=== PATIENT | female | born 1955 | race Caucasian/White ===

== ENCOUNTER → 2017-05-28 | Outpatient (CLI) | payer OTHER ==
[~2017-05-28] MED LIST: ATEN-155 PO; ATEN25TA PO; BIRTH CONTROL PILL PO; CETI10TA20 PO; CHOL10003 PO; CHOL100045 PO; CITA10TA7 PO; CYCL10TA9 PO; ESTR2TAB PO; FEXO180T PO; LOSA50TA36 PO; MEDR2.5T PO; MELO15TA39 PO; RANI-515 PO; TRAM50TA2 PO
--- NOTE | 2017-05-31 10:58 | Diagnostic Imaging Report ---
INDICATION: Screening mammogram. COMPARISON: 05/27/2016. TECHNIQUE: Digital screening mammography was obtained with CAD and 3-dimensional tomosynthesis. FINDINGS: The breast tissue is heterogeneously dense. No masses or suspicious calcifications are seen. There has been no interval change. IMPRESSION: Stable screening mammogram. No malignancy. ACR BI-RADS Category 1: Negative. Result letter will be mailed to the patient. Note: At least 10% of breast cancer is not imaged by mammography. Dictated by: Dictated on workstation # [id number]
== END ==
LOC: RAD 15:28
PROVIDERS: ATTEND Obstetrics & Gynecology
DX: Z12.31 Encounter for screening mammogram for malignant neoplasm of breast (principal)
CPT/HCPCS: 77067

== ENCOUNTER 2017-07-12 15:00 | Outpatient (CLI) | payer OTHER ==
[~2017-07-12] VITALS: Ht 160 cm; Wt 57.2 kg
[~2017-07-12 15:00] MED LIST changes: -ATEN25TA PO; -CETI10TA20 PO; -CHOL100045 PO; -CITA10TA7 PO; -ESTR2TAB PO; -LOSA50TA36 PO; -MEDR2.5T PO; -MELO15TA39 PO; -RANI-515 PO
[2017-07-12] MEDS ORDERED: ESTR2TAB PO (15:15)
[2017-07-12] MEDS ORDERED: MELO15TA39 PO (15:15)
[2017-07-12] MEDS ORDERED: MEDR2.5T PO (15:15)
[2017-07-12] MEDS ORDERED: RANI-515 PO (15:15)
[2017-07-12] MEDS ORDERED: ATEN25TA PO (15:15)
[2017-07-12] MEDS ORDERED: CHOL100045 PO (15:15)
[2017-07-12] MEDS ORDERED: CETI10TA20 PO (15:15)
[2017-07-12] MEDS ORDERED: TRAM50TA2 PO (15:15)
[2017-07-12] MEDS ORDERED: CITA10TA7 PO (15:15)
[2017-07-12] MEDS ORDERED: LOSA50TA36 PO (15:15)
== END 2017-07-12 15:25 ==
LOC: PREOP 15:00
PROVIDERS: ATTEND Surgery
DX: Z01.818 Encounter for other preprocedural examination (principal); Z12.11 Encounter for screening for malignant neoplasm of colon

== ENCOUNTER → 2017-07-14 | Day surgery (SDC) | payer OTHER ==
[~2017-07-14] VITALS: Ht 160 cm; Wt 57.2 kg
[~2017-07-14] MED LIST changes: +ACETAMINOPHEN 325 MG TABLET/CAPLET (TYLENOL) PO PRN; +ATEN25TA PO; +CETI10TA20 PO; +CHOL100045 PO; +CITA10TA7 PO; +ESTR2TAB PO; +LIDOCAINE JELLY 2% (XYLOCAINE) 5 ML TUBE MM PRN; +LIDOCAINE JELLY 2% (XYLOCAINE) 5 ML TUBE ONE; +LOSA50TA36 PO; +MEDR2.5T PO; +MELO15TA39 PO; +MIDAZOLAM 2 MG/2 ML (VERSED) VIAL ONE; +NS IV 500 ML 500 ML IV PRN; +NS IV 500 ML 500 ML ONE; +ONDANSETRON 4 MG/2 ML (SDV) Z0FRAN IV PRN; +RANI-515 PO; +fentaNYL INJECTION 100 MCG/2 ML AMP ONE; +morphine INJ 10 MG/ML 1ML (SYR OR VIAL) IV PRN
[2017-07-14 09:05] VITALS: BP 143/91
[2017-07-14] MEDS: fentaNYL INJECTION 100 MCG/2 ML AMP IVP PRN ×3 (10:37→10:56)
--- NOTE | 2017-07-14 10:41 | Conscious Sedation/ASA ---
Conscious Sedation Pre-Proced Time Reviewed: 10:00 ASA Class: 2 Airway Mallampati Classification: ([place] appropriate class) I. II. III, IV Lungs Heart ASA score ASA 1: a normal healthy patient ASA 2: a patient with a mild systemic disease (mid diabetes, controlled hypertension, obesity ASA 3: a patient with a severe systemic disease that limits activity (angina , COPD, prior Myocardial infarction) ASA 4: a patient with an incapacitating disease that is a constant threat to life (CHF, renal failure) ASA 5: a moribund patient not expected to survive 24 hrs. (ruptured aneurysm) ASA 6: a declared brain patient whose organs are being harvested. For emergent operations, add the letter E after the classification Grade 2 Sedation Plan: Analgesia, Amnesia, Plan communicated to team members, Discussed options with patient/fam, Discussed risks with patient/fam Note The patient is an appropriate candidate to undergo the planned procedure, sedation, and anesthesia. The patient immediately re-assessed prior to indication. PARVIN CUEVA MD Jul 14, 2017 10:41 am
--- NOTE | 2017-07-14 10:41 | Progress Note-Pre Operative ---
Pre-Operative Progress Note H&P Reviewed The H&P was reviewed, patient examined and no changes noted. Date Seen by Provider: Jul 14, 2017 Time Seen by Provider: 10:00 Date H&P Reviewed: Jul 14, 2017 Time H&P Reviewed: 10:00 Pre-Operative Diagnosis: screening colonoscopy PARVIN CUEVA MD Jul 14, 2017 10:41 am
[2017-07-14] MEDS: MIDAZOLAM 2 MG/2 ML (VERSED) VIAL IVP PRN ×4 (10:45→10:58)
--- NOTE | 2017-07-14 11:22 | Progress Note-Post Operative ---
Post-Operative Progess Note Surgeon (s)/Chairman (s) Surgeon PARVIN CUEVA MD Chairman: none Pre-Operative Diagnosis screening colonoscopy Post-Operative Diagnosis chronic stage 2 ext and int hemorrhoids. Procedure & Operative Findings Date of Procedure 07/14/17 Procedure Performed/Findings Colonoscopy Anesthesia Type CS Estimated Blood Loss Estimated blood loss (mL): minimal Specimens/Packing Specimens Removed none PARVIN CUEVA MD Jul 14, 2017 11:22 am
--- NOTE | 2017-07-14 11:23 | Discharge Inst-Surgical ---
D/C Lap Instructions-ANAY Follow Up 10 years Activity as tolerated High Fiber Diet 25g or more per day Avoid Alcohol, Caffeine, Spicy [place] and Acid foods. Drink 64 fluid oz or more of fluids per day. Symptoms to Report: Fever over 101 degree F, Nausea/Vomiting If any problems/questions: Contact your physician or go to Emergency Room PARVIN CUEVA MD Jul 14, 2017 11:23 am
[2017-07-14 11:35] VITALS: BP 128/81
[2017-07-14 12:05] VITALS: BP 125/78
[2017-07-14 12:06] VITALS: BP 125/78
--- NOTE | 2017-07-14 19:37 | OPERATIVE REPORT ---
DATE OF SERVICE: 07/14/2017 ATTENDING PRIMARY CARE PHYSICIAN: Dr. Smita Salinas. PREOPERATIVE DIAGNOSIS: Screening colonoscopy. POSTOPERATIVE DIAGNOSIS: Chronic stage II external and internal hemorrhoids. PROCEDURE: Colonoscopy. SURGEON: Dr. Cardoso. ANESTHESIA: Conscious sedation. ESTIMATED BLOOD LOSS: Minimal. FINDINGS: Chronic stage II external and internal hemorrhoids, not actively edematous nor inflamed and no bleeding. The remainder of the rectum and colon were normal. DISPOSITION: The patient tolerated the procedure well. the patient is a 61-year-old female known to us. She has been seen before in the past for benign skin lesions. She also did have two breast lesions identified on mammogram as well as MRI. These were biopsied and found to be consistent with benign breast tissue. She is also in need of a screening colonoscopy. Her last colonoscopy was 10 years ago, which she reports to be normal. She states that she is having normal bowel movements and for the most part does not have any major issues of diarrhea nor constipation as well as no red blood per rectum nor any dark tarry stools. The endoscope was intubated to the anus and rectum and gently insufflated. The endoscope was then advanced to the valves of [place] of the rectum with no polyps or any neoplasms identified. The endoscope was then advanced to the sigmoid colon where no diverticulosis identified. The endoscope was then advanced to the remainder of the descending, transverse and ascending colon to the cecum. These segments were normal. There were no polyps or any neoplasms identified throughout the colon or rectum. The endoscope was then slowly withdrawn taking a second look and suctioning residual air with no additional findings. The patient tolerated the procedure well. We will have her continue with medical management with a high fiber diet with at least 25 grams of fiber per day as well as at least 64 fluid ounces of water daily to promote soft stools on a daily basis. She does not need another colonoscopy for another 10 years. Job ID: [id number] DocumentID: [id number] Dictated Date: 07/14/2017 11:18:42 Rubber Covering Machine Operator Date: 07/14/2017 19:36:39 Dictated By: PARVIN CARDOSO MD
== END | disposition home or self-care (01) ==
LOC: SDC 08:59
PROVIDERS: ATTEND Surgery
DX: Z12.11 Encounter for screening for malignant neoplasm of colon; K64.1 Second degree hemorrhoids; Z80.3 Family history of malignant neoplasm of breast; I10 Essential (primary) hypertension; F41.9 Anxiety disorder, unspecified; Z79.899 Other long term (current) drug therapy; F32.9 Major depressive disorder, single episode, unspecified

== ENCOUNTER → 2019-06-16 | Outpatient (CLI) | payer OTHER ==
[~2019-06-16] MED LIST changes: -ACETAMINOPHEN 325 MG TABLET/CAPLET (TYLENOL) PO PRN; -LIDOCAINE JELLY 2% (XYLOCAINE) 5 ML TUBE MM PRN; -LIDOCAINE JELLY 2% (XYLOCAINE) 5 ML TUBE ONE; -LOSA50TA36 PO; +LOSA50TA63 PO; -MIDAZOLAM 2 MG/2 ML (VERSED) VIAL ONE; -NS IV 500 ML 500 ML IV PRN; -NS IV 500 ML 500 ML ONE; -ONDANSETRON 4 MG/2 ML (SDV) Z0FRAN IV PRN; -fentaNYL INJECTION 100 MCG/2 ML AMP ONE; -morphine INJ 10 MG/ML 1ML (SYR OR VIAL) IV PRN
--- NOTE | 2019-06-19 09:27 | Diagnostic Imaging Report ---
INDICATION: Routine screening. COMPARISON: 06/07/2018 and 05/28/2017. TECHNIQUE: 2D and 3D bilateral screening mammography was performed with CAD. FINDINGS: Both breasts remain heterogeneously dense, limiting the sensitivity of mammography. The overall breast parenchymal pattern is stable. No dominant mass or malignant appearing microcalcifications are seen. A marker clip in the right breast is again noted. The axillae are unremarkable. IMPRESSION: No mammographic features suspicious for malignancy are identified. ACR BI-RADS Category 2: Benign findings. Result letter will be mailed to the patient. Note: At least 10% of breast cancer is not imaged by mammography. Dictated by: Dictated on workstation # [id number]
== END ==
LOC: RAD 15:03
PROVIDERS: ATTEND Obstetrics & Gynecology
DX: Z12.31 Encounter for screening mammogram for malignant neoplasm of breast (principal)
CPT/HCPCS: 77067

== ENCOUNTER → 2020-07-03 | Outpatient (CLI) | payer OTHER ==
[~2020-07-03] MED LIST changes: -CETI10TA20 PO; +CETI10TA49 PO; -RANI-515 PO; +RANI-609 PO; +TRM50T PO
--- NOTE | 2020-07-04 17:11 | Diagnostic Imaging Report ---
Digital mammogram. Bilateral screening This study was compared to the prior exams of 06/16/2019, 06/07/2018 and 05/28/2017. At this time there are no current complaints. The current study was also evaluated with a Computer Aided Detection (CAD) system. FINDINGS: The fibroglandular tissue in both breasts is heterogeneously dense. This does limit the sensitivity of this exam. Overall, there does not appear to have been any significant change when compared to the prior study. No primary or secondary sign of malignancy is noted. The stereotactic clip in the right breast seen previously is again evident and no different. IMPRESSION: There is no radiographic evidence for malignancy. ACR BI-RADS Category 1: Negative. Result letter will be mailed to the patient. Note: At least 10% of breast cancer is not imaged by mammography. Dictated by: Dictated on workstation # [id number]
== END ==
LOC: RAD 06-28 09:15
PROVIDERS: ATTEND Obstetrics & Gynecology
DX: Z12.31 Encounter for screening mammogram for malignant neoplasm of breast (principal)
CPT/HCPCS: 77063; 77067

== ENCOUNTER 2020-09-24 05:32 | Outpatient (RCR) | payer OTHER ==
[~2020-09-24] VITALS: Ht 160 cm; Wt 64.5 kg
[~2020-09-24 05:32] MED LIST changes: +FAMO-119 PO; +FURO20TA4 PO; +LOSA100T57 PO; +MEDR5TAB4 PO
== END 2020-09-24 10:58 | disposition home or self-care (01) ==
LOC: PREOP 05:32
PROVIDERS: ATTEND Obstetrics & Gynecology
DX: Z01.812 Encounter for preprocedural laboratory examination (principal); Z20.828 Contact with and (suspected) exposure to other viral communicable diseases
CPT/HCPCS: 87635

== ENCOUNTER 2020-09-27 07:59 | Day surgery (SDC) | payer OTHER ==
[2020-09-27] VITALS (11 sets, daily range): BP systolic 108–184; BP diastolic 62–96
[~2020-09-27] VITALS: Ht 154 cm; Wt 65.9 kg
[2020-09-27] MEDS ORDERED: ceFAZolin INJECTION 1,000 MG in WATER (STERILE) FOR INJECTION 10 ML IV ONE (08:15)
[2020-09-27] MEDS ORDERED: CATHETER FLUSH 10 ML SYR IV PRN (08:45)
[2020-09-27] MEDS: LACTATED RINGERS 1,000 ML IV PRN ×2 (08:52→10:38)
[2020-09-27 08:58] LABS: BASOPHILS # (AUTO) 0.1 10^3/uL (0.0-0.1); BASOPHILS % (AUTO) 1 % (0-10); EOSINOPHILS # (AUTO) 0.2 10^3/uL (0.0-0.3); EOSINOPHILS % (AUTO) 3 % (0-10); HEMATOCRIT 38 % (35-52); HEMOGLOBIN 12.5 g/dL (11.5-16.0); LYMPHOCYTES # (AUTO) 1.6 10^3/uL (1.0-4.0); LYMPHOCYTES % (AUTO) 26 % (12-44); MEAN CORPUSCULAR HEMOGLOBIN 30 pg (25-34); MEAN CORPUSCULAR HGB CONC 33 g/dL (32-36); MEAN CORPUSCULAR VOLUME 91 fL (80-99); MONOCYTES # (AUTO) 0.5 10^3/uL (0.0-1.0); MONOCYTES % (AUTO) 8 % (0-12); NEUTROPHILS # (AUTO) 3.8 10^3/uL (1.8-7.8); NEUTROPHILS % (AUTO) 62 % (42-75); PLATELET COUNT 225 10^3/uL (130-400); WHITE BLOOD COUNT 6.2 10^3/uL (4.3-11.0)
[2020-09-27] MEDS ORDERED: LIDOCAINE/EPI 1%-1:100,000 (XYLOCAINE) 50 ML ONE (09:21)
[2020-09-27] MEDS ORDERED: ROCURONIUM 10 MG/ML 5 ML SYRINGE IV ONE (09:23)
[2020-09-27] MEDS ORDERED: fentaNYL INJECTION 100 MCG/2 ML AMP ONE (09:23)
[2020-09-27] MEDS ORDERED: proPOfol 200 MG/20 ML (DIPRIVAN) VIAL IV ONE (09:23)
[2020-09-27] MEDS ORDERED: MIDAZOLAM 2 MG/2 ML (VERSED) VIAL ONE (09:23)
[2020-09-27] MEDS ORDERED: SEVOFLURANE (ULTANE) 15 ML INHAL SOLN ONE ×5 (09:23→11:33)
[2020-09-27] MEDS ORDERED: LIDOCAINE PF 2% 5 ML (XYLOCAINE) VIAL ONE (09:23)
--- NOTE | 2020-09-27 09:37 | Progress Note-Pre Operative ---
Pre-Operative Progress Note H&P Reviewed The H&P was reviewed, patient examined and no changes noted. 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
--- NOTE | 2020-09-27 09:40 | Progress Note-Post Operative ---
Post-Operative Progess Note Surgeon (s)/Board Liner Operator (s) Surgeon LISSET BECK MD Board Liner Operator: Nevaeh Hodge Pre-Operative Diagnosis Postmenopausal bleeding/endometrial hyperplasia/endometrial tubal metaplasi Post-Operative Diagnosis Same with Abnormal appearing appendix multilobular uterus and with pathology pending Procedure & Operative Findings Date of Procedure 09/27/20 Procedure Performed/Findings Total laparoscopic hysterectomy with bilateral salpingo-oophorectomy / Laparoscopic appendectomy Anesthesia Type GETA Estimated Blood Loss Estimated blood loss (mL): Minimal Specimens/Packing Specimens Removed Uterus fallopian tubes and ovaries Packing: None LISSET BECK MD Sep 27, 2020 09:40
[2020-09-27] MEDS ORDERED: DOCU-143 PO (09:44)
[2020-09-27] MEDS ORDERED: OXYC1TAB87 PO (09:44)
[2020-09-27] MEDS ORDERED: D5 LR IV SOLUTION 1,000 ML IV SCH ×2 (09:45→16:45)
[2020-09-27] MEDS ORDERED: PROMETHAZINE INJ 25 MG/ML (PHENERGAN) AMP IM PRN (09:45)
[2020-09-27] MEDS ORDERED: oxyCODONE/APAP 5/325MG (PERCOCET 5) TABLET PO PRN (09:45)
[2020-09-27] MEDS ORDERED: MEPERIDINE (DEMEROL) INJ 100 MG/ML IM PRN (09:45)
[2020-09-27] MEDS ORDERED: KETOROLAC 30 MG/ML VIAL IVP SCH ×2 (09:45→18:00)
[2020-09-27] MEDS ORDERED: ONDANSETRON 4 MG/2 ML (SDV) Z0FRAN IVP PRN ×3 (09:45→16:45)
[2020-09-27] MEDS ORDERED: ESTROGENS CONJ INJECTION 25 MG in WATER (STERILE) FOR INJECTION 5 ML IV ONE (09:45)
--- NOTE | 2020-09-27 09:45 | Discharge Inst-Surgical ---
Discharge Inst-Surgical Consults/Follow Up Patient Instructions: As directed Orders & Referrals Follow Up Appt: Return to clinic on Wednesday, September 30, 2020 at 9:30 AM for staple removal Call to make follow up appt. for patient in 4 weeks. Activity: Rest for 24 hours, than as tolerated. Wound Care: May remove Band-Aid tomorrow. Replace as desired. Keep incisions clean and dry. Wash daily with soap and water. Please call in RX to patient pharmacy. Diet: As tolerated shower or tub bathe as desired. No driving for 24 hours, no alcoholic beverages for 24 hours, and nothing per vagina (no tampons, douching, or intercoarse) for 8 weeks. Patient to return to the clinic as soon as possible for: Temperature greater than 101F, Severe Pain, Foul discharge from incision or vagina, Excessive Bleeding (more than a period). Activity Activity as Tolerated: No Diet Discharge Diet: No Restrictions LISSET BECK MD Sep 27, 2020 09:45
[2020-09-27] MEDS ORDERED: ATROPINE INJ 0.4 MG/ML SDV ONE (10:09)
--- NOTE | 2020-09-27 11:28 | Anesthesia-General Post-Op ---
General Patient Condition Mental Status/LOC: Same as Preop Cardiovascular: Satisfactory Nausea/Vomiting: Absent Respiratory: Satisfactory Pain: Controlled Complications: Absent Post Op Complications Complications None Follow Up Care/Instructions Patient Instructions None needed. Anesthesia/Patient Condition Patient Condition Patient is doing well, no complaints, stable vital signs, no apparent adverse anesthesia problems. No complications reported per nursing. CYN OROCZO CRNA Sep 27, 2020 11:28
[2020-09-27] MEDS ORDERED: MEPERIDINE (DEMEROL) INJ 50 MG/ML IVP ONE (11:30)
[2020-09-27] MEDS ORDERED: HYDROmorphone 2 MG/ML VIAL (DILAUDID) IV ONE (11:30)
[2020-09-27] MEDS ORDERED: morphine INJ 10 MG/ML 1ML (SYR OR VIAL) IVP ONE (11:30)
[2020-09-27] MEDS ORDERED: ESTROGENS CONJ IV 25 MG/5 ML (PREMARIN) VIAL ONE (11:47)
[2020-09-27] MEDS ORDERED: KETOROLAC 30 MG/ML VIAL ONE (11:47)
[2020-09-27] MEDS ORDERED: WATER (STERILE) FOR INJECTION 10 ML ONE (11:48)
[2020-09-27] MEDS ORDERED: morphine INJ 10 MG/ML 1ML (SYR OR VIAL) ONE (11:59)
--- NOTE | 2020-09-27 12:30 | NUR ---
pt transferred to room 305 via bed with PACU staff @ side. pt resting with eyes closed. report received from JUDY Salas. care assumed of pt.
--- NOTE | 2020-09-27 12:38 | NUR ---
initial assessment completed, see interventions for further. vs taken. pt awakens when called by name. denies c/o's @ time. lapsites x3, D/I. opsites covering, no drainage noted. cool to DD with clear, yellow urine noted in chamber. O2 @ 3L/NC.
--- NOTE | 2020-09-27 14:30 | NUR ---
pt sleeping with unlabored respirations. no sx's of distress noted.
--- NOTE | 2020-09-27 16:05 | NUR ---
cool catheter dc'd per pt's request. 400cc urine noted in chamber.
[2020-09-27] MEDS ORDERED: MEPERIDINE (DEMEROL) INJ 100 MG/ML IM ONE (16:45)
[2020-09-27] MEDS ORDERED: PROMETHAZINE INJ 25 MG/ML (PHENERGAN) AMP IM ONE (16:45)
[2020-09-27] MEDS ORDERED: KETOROLAC 30 MG/ML VIAL IVP ONE (16:45)
[2020-09-27] MEDS ORDERED: HYDROcodone/APAP 10 MG/325 MG (LORTAB) TAB PO PRN (16:45)
--- NOTE | 2020-09-27 16:45 | NUR ---
assisted up to BR with daughter @ side. voided 100cc urine.
--- NOTE | 2020-09-27 17:05 | NUR ---
pt requesting dismissal to home. Dr. Walsh on WS unit, dismissal order received.
--- NOTE | 2020-09-27 17:35 | NUR ---
IS treatment initiated.
--- NOTE | 2020-09-27 17:45 | NUR ---
eating regular diet. no c/o's voiced.
--- NOTE | 2020-09-27 18:49 | NUR ---
Scheduled Toradol 30mg IV given.
--- NOTE | 2020-09-27 19:18 | NUR ---
Report given to JDUY Steele
--- NOTE | 2020-09-27 19:30 | NUR ---
Discharge instructions given. Pt expresses understanding of all instructions. Denies any further questions or concerns at this time.
--- NOTE | 2020-09-27 19:40 | NUR ---
Pt taken via wheelchair by nursing staff to 's vehicle.
--- NOTE | 2020-09-28 04:53 | OPERATIVE REPORT ---
DATE OF SERVICE: 09/27/2020 PREOPERATIVE DIAGNOSES: Postmenopausal bleeding, abnormal uterine bleeding, uteromegaly and pelvic pain. POSTOPERATIVE DIAGNOSES: Postmenopausal bleeding, abnormal uterine bleeding, uteromegaly and pelvic pain with multiple uterine masses consistent with fibroids and with final pathology pending and also with an abnormal appearing appendix with final pathology pending. OPERATIVE PROCEDURE: Total laparoscopic hysterectomy with bilateral salpingo-oophorectomy, adhesiolysis and laparoscopic appendectomy. OPERATIVE DESCRIPTION: With the patient in the supine position under satisfactory general anesthesia, she was repositioned in dorsal lithotomy position in the [facility] and prepped and draped in the usual fashion for abdominal and vaginal surgery. Good catheter was placed in the urinary bladder and left to dependent drainage. Weighted speculum placed in posterior fornix of vagina, cervix exposed and grasped anteriorly with single tooth tenaculum. Uterus was sounded to 13 cm with uterine sound. The cervix was then serially dilated with Anival dilators, which was dilated adequately to accommodate a uterine manipulator, which was placed using a Nahomy II with a 6 mm x 8 cm uterine probe and a 25 mm colpotomy ring. Sutures of #1 Vicryl placed at 3 and 9 o'clock position of the cervix and attached to the manipulator to stabilize the uterus and affixed to the manipulator. The patient was brought in low dorsal lithotomy position. A 12 mm incision was made 8 cm superior to the umbilicus. Veress needle was placed through that incision into the abdominal cavity. Correct placement was confirmed with water drop test. The abdomen was insufflated with 2.4 liters of carbon dioxide and the Veress needle was removed and a 12 mm Optiview laparoscopic port placed. The abdominal wall was transilluminated and 8 mm ports were placed through incisions of that size 8 cm lateral to the umbilicus at a level 2 to 3 cm above the umbilicus. All three port sites were infiltrated with 1% lidocaine with epinephrine prior to incision. The patient was now placed in Trendelenburg allowing the bowel spill above the pelvis. The da Gilberto column was advanced on the patient and docked and then operative instrument was placed in the right and left lateral ports and I retired to the da Gilberto console. At the console using the vessel sealer on the right and a bipolar fenestrated grasper on the left, the pelvis was first examined. The uterus was multilobular with numerous large fibroid emanating from the surface. One was quite vascular. The others had a typical fibroid appearance. There were several smaller exophytic fibroids on the posterior surface of the uterus. The laparoscope was rotated. The appendix was identified. It was an abnormal appearing multilobular somewhat injected appendix. Decision was made to proceed with appendectomy after the hysterectomy. The laparoscope was brought back to the pelvis. Both ureters were identified and seemed to peristalse freely. The right tube and ovary were grasped and elevated using the vessel sealer, the right IP ligament was clamped, cauterized and divided that was continued stepwise across the mesovarium, across the round ligament, across the broad ligament down on to the cardinal ligament. Same procedure performed on the left, eventually allowing for removal of both tubes and ovaries with the uterus. The anterior lower uterine segment peritoneum was now exposed and using the vessels replacing the vessel sealer with monopolar shear on the right. The anterior lower uterine segment peritoneum was divided. The bladder was carefully dissected down off the lower uterine segment and then a colpotomy incision was started at the 12 o'clock position onto the colpotomy ring. That incision was continued circumferentially until the entire colpotomy ring was exposed and then the uterus was removed, extracted through the vagina. This was done with some difficulty secondary to the multilobular nature of the uterus and the uterine size. Eventually, the uterus was extracted. The vaginal cuff was then closed with a suture of 2-0 V-Loc barbed suture. That suture was started at the right angle of the vagina, continued across. Second suture was used to finish the closure on the left side. Care was taken to ensure the inclusion of the uterine vessel pedicles bilaterally. With the vaginal cuff completely closed, the pelvis was examined for hemostasis that being complete, attention was turned to the appendix. The appendix was grasped and elevated. The mesoappendix was perforated close to the base of the appendix, mesoappendix was divided carefully with electrocautery ensuring hemostasis along the way. Once the appendix had been skeletonized on to its attachment to the cecum. The da Gilberto portion of the procedure was halted. The operative instruments were removed under direct vision. The da Gilberto column was undocked and removed from the patient. Using conventional instruments with the scope in the left lateral port the grasper was placed in the right lateral port. The appendix was elevated. Endo-JOE was placed through the umbilical port and placed across the base of the appendix and then fired, severing the appendix from its attachments. The appendix was then placed in an Endobag and brought out through the umbilical port. The stump of the appendix was copiously irrigated and treated with several drops of Betadine solution. The pelvis was examined a final time for hemostasis that being complete with no remaining abnormal pathology, the procedure was terminated. The operative instruments were removed under direct vision as were the ports. The abdomen was evacuated of the insufflating gas in the process of removing the ports. Skin incisions were closed with casey after first closing the fascia at the supraumbilical incision with [id number] suture of 2-0 Vicryl. Speculum was placed in the vagina. Vaginal cuff was examined and found to be completely hemostatic and completely reapproximated. It was noted that there was an abrasion and first-degree laceration circumferentially from the 4 to 6 o'clock position along the hymenal ring, likely from extracting this large uterus through the vagina. This was reapproximated with a running locked suture of 3-0 Vicryl Rapide. Hemostasis was complete. Sponge and needle counts were correct. Blood loss for the entire procedure was minimal. The patient was now uneventfully awakened from her general anesthesia and transferred to the recovery room in stable condition. The Good catheter was left to dependent drainage, draining clear yellow urine. Job ID: [id number] DocumentID: [id number] Dictated Date: 09/27/2020 22:23:54 Counseling Center Director Date: 09/28/2020 04:53:05 Dictated By: LISSET BECK MD
[2020-09-28] MEDS ORDERED: DOCUSATE SODIUM 100 MG (COLACE) CAP PO SCH (09:00)
[2020-09-28] MEDS ORDERED: ESTRADIOL 1 MG TAB (ESTRACE) PO SCH (09:00)
[2020-09-28] MEDS ORDERED: IBUPROFEN 800 MG (MOTRIN) TAB PO SCH (12:00)
== END 2020-09-27 19:40 | disposition home or self-care (01) ==
LOC: SDC 07:59 → WS 12:31 → SDC 19:40
PROVIDERS: ATTEND Obstetrics & Gynecology
DX: D25.1 Intramural leiomyoma of uterus (principal); N95.0 Postmenopausal bleeding; N72 Inflammatory disease of cervix uteri; N83.8 Other noninflammatory disorders of ovary, fallopian tube and broad ligament; N93.9 Abnormal uterine and vaginal bleeding, unspecified; I10 Essential (primary) hypertension; K21.9 Gastro-esophageal reflux disease without esophagitis; Z79.899 Other long term (current) drug therapy; Z88.5 Allergy status to narcotic agent
CPT/HCPCS: 36415; 85025; 86850; 86900; 86901; 87081; 88304; 88307

== ENCOUNTER → 2021-07-21 | Outpatient (CLI) | payer OTHER ==
[~2021-07-21] MED LIST changes: +CHOL10004 PO; +DOCU-143 PO; +OXYC1TAB87 PO
--- NOTE | 2021-07-21 13:27 | Diagnostic Imaging Report ---
INDICATION: Routine screening. Comparison is made with prior mammogram 07/03/2020 and 06/16/2019. 2-D and 3-D bilateral screening mammography was performed with CAD. Both breasts are heterogeneously dense, limiting the sensitivity of mammography. The parenchymal pattern is stable. No mass or malignant-appearing microcalcifications are seen. Axillae are unremarkable. IMPRESSION: BI-RADS Category 1 No mammographic features suspicious for malignancy are identified. ACR BI-RADS Category 1: Negative. Result letter will be mailed to the patient. Note: At least 10% of breast cancer is not imaged by mammography. Dictated by: Dictated on workstation # [id number]
== END ==
LOC: RAD 08:45
PROVIDERS: ATTEND Family Medicine
DX: Z12.31 Encounter for screening mammogram for malignant neoplasm of breast (principal)
CPT/HCPCS: 77063; 77067

== ENCOUNTER → 2022-06-08 | Outpatient (CLI) | payer OTHER ==
[~2022-06-08] MED LIST changes: -CITA10TA7 PO; +CITA10TA9 PO; -ESTR2TAB PO; +ESTR2TAB3 PO
--- NOTE | 2022-06-08 16:46 | Diagnostic Imaging Report ---
INDICATION: Neck pain AP, lateral and odontoid views of the cervical spine are obtained. There is disc space narrowing at C5-C6 and C6-C7 with osteophyte formation. There is anterolisthesis of C3 on C4 by about 2 mm as well as C4 on C5 by about 4 to 5 mm. The odontoid is intact. There is diffuse facet degenerative change throughout all levels. IMPRESSION: Degenerative changes of the cervical spine with findings described above with severe disc space narrowing at C5-C6 and C6-C7 and anterolisthesis of C3 on C4 as well as C4 on C5. Dictated by: Dictated on workstation # [id number]
== END ==
LOC: RAD 12:05
PROVIDERS: ATTEND Family Medicine
DX: M48.02 Spinal stenosis, cervical region (principal); M43.12 Spondylolisthesis, cervical region; M47.812 Spondylosis without myelopathy or radiculopathy, cervical region
CPT/HCPCS: 72040

== ENCOUNTER → 2022-07-22 | Outpatient (CLI) | payer OTHER ==
--- NOTE | 2022-07-22 11:16 | Diagnostic Imaging Report ---
INDICATION: Routine screening. COMPARISON: 07/21/2021 and 07/03/2020. TECHNIQUE: 2D and 3D bilateral screening mammography was performed with CAD. FINDINGS: Both breasts are heterogeneously dense, limiting the sensitivity of mammography. A lobulated density has developed in the medial right breast and additional views are recommended. No other masses are identified. No malignant-appearing microcalcifications are seen. The axillae are unremarkable. IMPRESSION: Right breast density. Additional views are recommended for further evaluation. ACR BI-RADS Category 0: Incomplete. (Needs additional imaging evaluation). Result letter will be mailed to the patient. Note: At least 10% of breast cancer is not imaged by mammography. Dictated by: Dictated on workstation # [id number]
== END ==
LOC: RAD 09:45
PROVIDERS: ATTEND Obstetrics & Gynecology
DX: Z12.31 Encounter for screening mammogram for malignant neoplasm of breast (principal)
CPT/HCPCS: 77063; 77067

== ENCOUNTER → 2022-07-27 | Outpatient (CLI) | payer OTHER ==
--- NOTE | 2022-07-27 15:02 | Diagnostic Imaging Report ---
INDICATION: Right breast density. Patient presents for additional views. COMPARISON: Correlation is made with the screening study from 07/22/2022. TECHNIQUE: Unilateral right 2D and 3D diagnostic mammography was performed. This included spot compression CC and ML views as well as conventional 90 degree lateral views. The current study was evaluated with a Computer Aided Detection (CAD) system. FINDINGS: The additional views show a persistent lobulated density in the medial right breast approximately 4 cm from the nipple. There are benign calcifications present. IMPRESSION: Persistent lobulated density in the medial right breast 4 cm from the nipple. Further evaluation with ultrasound is recommended and will be performed today. ACR BI-RADS Category 0: Incomplete. (Needs additional imaging evaluation). Result letter will be mailed to the patient. Note: At least 10% of breast cancer is not imaged by mammography. Dictated by: Dictated on workstation # [id number]
--- NOTE | 2022-07-27 16:46 | Diagnostic Imaging Report ---
INDICATION: Abnormal mammogram. CORRELATION is made with diagnostic mammogram from earlier the same day and screening mammogram from 07/22/2022. Sonographic interrogation of the inner right breast was performed. There is either a bilobed cyst or 2 adjacent cysts noted at the 2:30 location, 3-4 cm from the nipple. In aggregate, this measures 11 mm x 5 mm x 14 mm. This correlates in size and location to the mammographic density. No internal vascularity is seen. IMPRESSION: Bilobed septated cyst versus 2 adjacent cysts at the 2:30 location right breast, 3 to 4 cm from the nipple corresponding to the mammographic density. A follow-up right breast ultrasound in 6 months is recommended to show continued stability. BI-RADS Category 3. ACR BI-RADS Category 3: Probably benign findings. Result letter will be mailed to the patient. Note: At least 10% of breast cancer is not imaged by mammography. Dictated by: Dictated on workstation # [id number]
== END ==
LOC: RAD 13:37
PROVIDERS: ATTEND Nurse Practitioner Family
DX: Z12.31 Encounter for screening mammogram for malignant neoplasm of breast (principal); R92.2 Inconclusive mammogram
CPT/HCPCS: 76642; 77065; G0279

== ENCOUNTER → 2023-02-12 | Outpatient (CLI) | payer MEDICARE, OTHER ==
--- NOTE | 2023-02-12 13:30 | Diagnostic Imaging Report ---
INDICATION: Six-month follow-up right breast cyst. CORRELATION is made with prior ultrasound from 07/27/2022. Sonographic interrogation at the 2:30 location right breast was performed, 3-4 cm from the nipple. The bilobed cyst versus 2 adjacent cysts described previously has decreased in size, now measuring 5 mm x 5 mm x 5 mm compared with 14 x 5 x 11 mm. There does appear to be a small amount of internal debris but no internal vascularity is present. No new masses are seen. IMPRESSION: BI-RADS Category 3. Slight decrease in size of a complex cyst at the 2:30 location right breast when compared with examination 6 month earlier. Additional six-month follow-up is recommended to show continued stability. Dictated by: Dictated on workstation # [id number]
== END ==
LOC: RAD 12:23
PROVIDERS: ATTEND Family Medicine
DX: N60.01 Solitary cyst of right breast (principal)

== ENCOUNTER → 2023-02-16 | Outpatient (CLI) | payer MEDICARE, OTHER ==
--- NOTE | 2023-02-16 17:27 | Diagnostic Imaging Report ---
INDICATION: 67-year-old asymptomatic postmenopausal female COMPARISON: None available FINDINGS: AP Spine L1-L4: [BMD (g/cm2): 1.356] [T-Score: 1.3] [Z-Score: 3.1] [BMD Previous: na] [BMD % Change: na] LT Hip Neck: [BMD (g/cm2): 0.959] [T-Score: -0.6] [Z-Score: 1.1] LT Hip Total: [BMD (g/cm2):0.992] [T-Score:-0.1] [Z-Score: 1.3] [BMD Previous: na] [BMD % Change: na] RT Hip Neck: [BMD (g/cm2):0.975] [T-Score:-0.5] [Z-Score:1.2] RT Hip Total: [BMD (g/cm2):1.024] [T-score:0.1] [Z-Score:1.5] [BMD Previous:na] [BMD % Change:na] *Indicates significant change from prior examination based on 95% confidence level. World Health Organization criteria for BMD interpretation classify patients as Normal (T-score at or above -1.0), Osteopenic (T-score between -1.0 and -2.5) or Osteoporotic (T-score at or below -2.5). LIMITATIONS AND MODIFICATION: None. FRACTURE RISK (FRAX SCORE): The ten year probability of (%): Major Osteoporotic Fracture: [na] Hip Fracture: [na] IMPRESSION: 1. Normal bone mineral density. 2. Baseline examination. 3. See below National Osteoporosis Foundation guidelines on when to potentially initiate pharmacologic therapy. Based on the National Osteoporosis Foundation Guidelines, pharmacologic treatment should be initiated in any of the following, unless clinical conditions suggest otherwise: * Any patient with prior fragility fracture of the hip or vertebrae. A spine fracture indicates 5X risk for subsequent spine fracture and 2X risk for subsequent hip fracture. * Osteoporosis (T-score <-2.5). * Postmenopausal women and men age 50 and older with low bone mass/osteopenia (T-score between -1.0 and -2.5) by DXA and 10-year major osteoporotic fracture greater than 20% or a 10-year probability of hip fracture greater than 3%. These fracture risks are supplied above in the FRAX score, if applicable. * Clinician judgement and/or patient preferences may indicate treatment for people with 10-year fracture probabilities above or below these levels. Dictated by: Dictated on workstation # [id number]
== END ==
LOC: RAD 09:30
PROVIDERS: ATTEND Family Medicine
DX: M85.80 Other specified disorders of bone density and structure, unspecified site (principal)
CPT/HCPCS: 77080